=== PATIENT | female | born 1995 | race Caucasian/White ===

== ENCOUNTER 2022-02-10 20:27 | Emergency (ER) | payer SELFPAY ==
[~2022-02-10] VITALS: Ht 170.2 cm; Wt 83.9 kg
[2022-02-10 21:06] VITALS: BP 131/80
--- NOTE | 2022-02-10 21:19 | NUR ---
Patient discharged to home in stable condition. Written and verbal after care instructions given. Patient verbalizes understanding of instruction. Pt ambulatory with a steady gait
== END 2022-02-10 21:37 | disposition home or self-care (01) ==
LOC: ER 21:19
DX: F14.10 Cocaine abuse, uncomplicated (principal); F17.200 Nicotine dependence, unspecified, uncomplicated; Z88.0 Allergy status to penicillin; Z88.1 Allergy status to other antibiotic agents; Z60.2 Problems related to living alone